=== PATIENT | female | born 1960 | race African-American/Black ===

== ENCOUNTER 2018-03-04 11:25 | Emergency (ER) | payer OTHER ==
--- NOTE | 2018-03-04 12:40 | RAD REPORT ---
EXAM DESCRIPTION: CT - Head Brain Wo Cont - 03/04/2018 12:17 pm CLINICAL HISTORY: Visual disturbance COMPARISON: None. TECHNIQUE: Computed axial tomography of the head was obtained. IV contrast was not requested. All CT scans are performed using dose optimization technique as appropriate and may include automated exposure control or mA/KV adjustment according to patient size. FINDINGS: An intracranial bleed is not seen . The ventricles are normal in caliber. No extra-axial fluid collection is noted. Fluid within the sinuses/ mastoids is not seen. IMPRESSION: No acute intracranial abnormality is seen. If patient's symptoms persist MRI of the bra in would be recommended.
[2018-03-04 13:44] LABS: Absolute Lymphocytes (CBC) 1.9 K/uL (0.7-4.9); Absolute Monocytes 0.4 K/uL (0.1-1.3); Absolute Neutrophil 3.4 K/uL (1.8-8.0); Basophils % 0.7 % (0-1.3); Eosinophils % 2.4 % (0-4.4); Hematocrit 35.8 % (36.0-45.0); Lymphocytes % 32.2 % (15.3-44.8); MCH 27.1 pg (27.0-35.0); MCV 79.8 fL (80-100); MPV 8.8 fL (7.6-11.3); RBC Red Blood Cell Count 4.49 M/uL (3.86-4.86)
[2018-03-04 14:00] LABS: Potassium 3.4 mmol/L (3.5-5.1)
--- NOTE | 2018-03-04 14:39 | RAD REPORT ---
EXAM DESCRIPTION: Rajeevalaina Angio03/04/2018 2:29 pm CLINICAL HISTORY: Double vision COMPARISON: None TECHNIQUE: 50 cc Isovue [address] angiogram neck was performed. Coronal and sagittal reconstruction was done. 3D MIP reconstruction was performed All CT scans are performed using dose optimization technique as appropriate and may include automated exposure control or mA/KV adjustment according to patient size. FINDINGS: The common carotid, internal carotid and external carotid arteries do not demonstrate a si gnificant stenosis. A dissection is not seen. An aneurysm is not noted. The left vertebral artery is dominant. A dissection is not visualized IMPRESSION: Unremarkable CTA neck
--- NOTE | 2018-03-04 14:59 | RAD REPORT ---
EXAM DESCRIPTION: CTHead angio03/04/2018 2:29 pm CLINICAL HISTORY: Blurred vision COMPARISON: None TECHNIQUE: CT angiogram of the head was obtained. 50 cc Isovue 370 was intravenously. Coronal and sa gittal reconstruction was performed. 3D MIP reconstruction was performed All CT scans are performed using dose optimization technique as appropriate and may include automated exposure control or mA/KV adjustment according to patient size. FINDINGS: The basilar, internal carotid, anterior cerebral, middle cerebral and posterior cerebral a rteries are normal caliber. An aneurysm is not seen. origin of the posterior cerebral arteries is present A significant stenosis is not noted. IMPRESSION: Unremarkable CT angiogram head.
--- NOTE | 2018-03-04 15:05 | ER ---
Nurse's Notes [facility] Name: Amber Rodriguez Age: 57 yrs Sex: Female : 1960 Arrival Date: 03/04/2018 Time: 11:31 Bed 20 Private MD: Diagnosis: Diplopia Presentation: 03/04 11:35 Presenting complaint: Patient states: "I am seeing double". Pt reports went to bed last aa5 night at 2000 and woke up today at 0200 with diplopia that comes and goes. Pt also reports nausea today, denies vomiting. Denies pain, dizziness, weakness, paresthesias. 11:35 Transition of care: patient was not received from another setting of care. Onset of aa5 symptoms was March 04, 2018. Risk Assessment: Do you want to hurt yourself or someone else? Patient reports no desire to harm self or others. Initial Sepsis Screen: Does the patient meet any 2 criteria? No. Patient's initial sepsis screen is negative. Does the patient have a suspected source of infection? No. Patient's initial sepsis screen is negative. Care prior to arrival: None. 11:35 Method Of Arrival: Ambulatory aa5 11:35 Acuity: LV 3 aa5 Historical: - Allergies: 11:37 Sulfa (Sulfonamide Antibiotics); aa5 - PMHx: 11:37 Hypertension; Diabetes - IDDM; aa5 - PSHx: 11:37 Hernia repair; aa5 - Immunization history:: Adult Immunizations up to date. - Social history:: Smoking status: Patient/guardian denies using tobacco. - Ebola Screening: : No symptoms or risks identified at this time. Screenin:51 Abuse screen: Denies threats or abuse. Nutritional screening: No deficits noted. aa5 Tuberculosis screening: No symptoms or risk factors identified. Fall Risk None identified. Assessment: 11:40 General: Appears uncomfortable, Behavior is calm, cooperative. Pain: Denies pain. aa5 Neuro: Level of Consciousness is awake, alert, obeys commands, Oriented to person, place, time, situation, Supervisor Smoke Control are equal bilaterally Moves all extremities. Gait is steady, Speech is normal, Facial symmetry appears normal, Pupils are PERRLA, Reports blurred vision diplopia, to both eyes . Denies weakness dizziness, paresthesias numbness headache. Cardiovascular: Heart tones S1 S2 present Rhythm is regular. Respiratory: Airway is patent Respiratory effort is even, unlabored, Respiratory pattern is regular, symmetrical, Breath sounds are clear bilaterally. GI: Abdomen is round non-distended, Bowel sounds present X 4 quads. Abd is soft and non tender X 4 quads. Reports nausea, Patient currently denies vomiting. : No signs and/or symptoms were reported regarding the genitourinary system. EENT: No signs and/or symptoms were reported regarding the EENT system. Derm: Skin is dry, Skin is normal, Skin temperature is warm. Musculoskeletal: Range of motion: intact in all extremities. 12:40 Reassessment: Patient appears in no apparent distress at this time. Patient and/or em family updated on plan of care and expected duration. Pain level reassessed. Patient is alert, oriented x 3, equal unlabored respirations, skin warm/dry/pink. 13:39 Reassessment: Patient appears in no apparent distress at this time. Patient and/or em family updated on plan of care and expected duration. Pain level reassessed. Patient is alert, oriented x 3, equal unlabored respirations, skin warm/dry/pink. symptoms unresolved, daughter at bedside states she has been dealing with left sided neck pain for about 4 months but thought it was due to her sleeping wrong, HANY Marie notified. 14:30 Reassessment: Patient appears in no apparent distress at this time. Patient and/or em family updated on plan of care and expected duration. Pain level reassessed. Patient is alert, oriented x 3, equal unlabored respirations, skin warm/dry/pink. symptoms not resolved, HANY Marie notified. 15:20 Reassessment: Patient appears in no apparent distress at this time. Patient and/or em family updated on plan of care and expected duration. Pain level reassessed. Patient is alert, oriented x 3, equal unlabored respirations, skin warm/dry/pink. c/o nausea and thinks BLG may be dropping, finger stick was 127, HANY Marie at bedside discussing POC. Vital Signs: 11:38 BP 155 / 80; Pulse 75; Resp 16 S; Temp 98.6(O); Pulse Ox 99% on R/A; Weight 87.09 kg aa5 (R); Height 5 ft. 9 in. (175.26 cm) (R); Pain 0/10; 12:40 BP 153 / 85; Pulse 77; Resp 16; Pulse Ox 99% on R/A; Pain 0/10; em 13:41 BP 146 / 82; Pulse 77; Resp 16; Pulse Ox 99% on R/A; Pain 0/10; em 14:34 BP 147 / 69; Pulse 79; Resp 16; Pulse Ox 99% on R/A; Pain 0/10; em 15:20 BP 144 / 75; Pulse 77; Resp 16; Pulse Ox 99% on R/A; Pain 0/10; em 11:38 Body Mass Index 28.35 (87.09 kg, 175.26 cm) aa5 ED Course: 11:31 Patient arrived in ED. mr 11:35 Arm band placed on Patient placed in an exam room, on a stretcher. aa5 11:35 Patient has correct armband on for positive identification. Placed in gown. Bed in low aa5 position. Call light in reach. Side rails up X2. 11:37 Cynthia Hyman FNP-C is PHCP. snw 11:37 Dain Szymanski MD is Attending Physician. snw 11:39 Addison Palomino LVN is Primary Nurse. em 11:48 Triage completed. aa5 11:51 No provider procedures requiring assistance completed. aa5 12:16 CT completed. Patient moved to CT via stretcher. Patient moved back from CT. cw1 12:17 CT Head Brain wo Cont In Process Unspecified. EDMS 13:10 Radiology exam delayed due to lab results not completed at this time. (BUN/Creatinine). cw1 14:26 CT completed. Patient moved to CT via stretcher. Patient moved back from CT. cw1 14:29 CT Neck Angio In Process Unspecified. EDMS 14:30 Head angio In Process Unspecified. EDMS 15:40 IV discontinued, intact, bleeding controlled, No redness/swelling at site. Pressure em dressing applied. Administered Medications: No medications were administered Point of Care Testing: Blood Glucose: 11:59 Blood Glucose: 99 mg/dL; ds4 15:20 Blood Glucose: 127 mg/dL; em Ranges: Outcome: 15:04 Discharge ordered by . snw 15:52 Discharged to home ambulatory, with family. em 15:52 Condition: good 15:52 Discharge instructions given to patient, family, Instructed on discharge instructions, follow up and referral plans. Demonstrated understanding of instructions, follow-up care. 15:55 Patient left the ED. em Signatures: Dispatcher MedHoCynthia Acosta, CALI INTER COM SERVICER-Anna Corral mr Palomino, Addison, GRINDER SET UP OPERATOR INTERNAL GRINDER SET UP OPERATOR INTERNAL em Johanny Castro, AMELIE RN aa5 Jordy, Nathalie cw1 Klever Crane ds4 Corrections: (The following items were deleted from the chart) 15:53 13:39 Reassessment: Patient appears in no apparent distress at this time. Patient em and/or family updated on plan of care and expected duration. Pain level reassessed. Patient is alert, oriented x 3, equal unlabored respirations, skin warm/dry/pink. symptoms unresolved, daughter at bedside states she has been dealing with left sided neck pain for about 4 months but thought it was due to her sleeping wrong, Cynthia, FIRE CONTROL TECHNICIAN B notified em
--- NOTE | 2018-03-04 15:05 | EDPHYS ---
Physician Documentation [facility] Name: Amber Rodriguez Age: 57 yrs Sex: Female : 1960 Arrival Date: 03/04/2018 Time: 11:31 Bed 20 Private MD: ED Physician Dain Szymanski HPI: 03/04 14:54 This 57 yrs old Black Female presents to ER via Ambulatory with complaints of Vision snw Problem. 14:54 Onset: The symptoms/episode began/occurred suddenly. Associated signs and symptoms: The snw patient has no apparent associated signs or symptoms. Modifying factors: The patient symptoms are alleviated by nothing. The patient has not experienced similar symptoms in the past. The patient has been recently seen by a physician: the patient's primary care provider, recently began Vyctoza. Denies headache, vomiting, trauma. Historical: - Allergies: 11:37 Sulfa (Sulfonamide Antibiotics); aa5 - PMHx: 11:37 Hypertension; Diabetes - IDDM; aa5 - PSHx: 11:37 Hernia repair; aa5 - Immunization history:: Adult Immunizations up to date. - Social history:: Smoking status: Patient/guardian denies using tobacco. - Ebola Screening: : No symptoms or risks identified at this time. ROS: 14:52 Constitutional: Negative for fever, chills, and weight loss, ENT: Negative for injury, snw pain, and discharge, Neck: Negative for injury, pain, and swelling, Cardiovascular: Negative for chest pain, palpitations, and edema, Respiratory: Negative for shortness of breath, cough, wheezing, and pleuritic chest pain, Abdomen/GI: Negative for abdominal pain, nausea, vomiting, diarrhea, and constipation, Back: Negative for injury and pain, : Negative for injury, bleeding, discharge, and swelling, MS/Extremity: Negative for injury and deformity, Skin: Negative for injury, rash, and discoloration, Neuro: Negative for headache, weakness, numbness, tingling, and seizure. 14:52 Eyes: Positive for diplopia. Exam: 14:36 Constitutional: This is a well developed, well nourished patient who is awake, alert, snw and in no acute distress. Head/Face: Normocephalic, atraumatic. ENT: Nares patent. No nasal discharge, no septal abnormalities noted. Tympanic membranes are normal and external auditory canals are clear. Oropharynx with no redness, swelling, or masses, exudates, or evidence of obstruction, uvula midline. Mucous membranes moist. Neck: Trachea midline, no thyromegaly or masses palpated, and no cervical lymphadenopathy. Supple, full range of motion without nuchal rigidity, or vertebral point tenderness. No Meningismus. Chest/axilla: Normal chest wall appearance and motion. Nontender with no deformity. No lesions are appreciated. Cardiovascular: Regular rate and rhythm with a normal S1 and S2. No gallops, murmurs, or rubs. Normal PMI, no JVD. No pulse deficits. Respiratory: Lungs have equal breath sounds bilaterally, clear to auscultation and percussion. No rales, rhonchi or wheezes noted. No increased work of breathing, no retractions or nasal flaring. Abdomen/GI: Soft, non-tender, with normal bowel sounds. No distension or tympany. No guarding or rebound. No evidence of tenderness throughout. Back: No spinal tenderness. No costovertebral tenderness. Full range of motion. Skin: Warm, dry with normal turgor. Normal color with no rashes, no lesions, and no evidence of cellulitis. MS/ Extremity: Pulses equal, no cyanosis. Neurovascular intact. Full, normal range of motion. Neuro: Awake and alert, GCS 15, oriented to person, place, time, and situation. Cranial nerves II-XII grossly intact. Motor strength 5/5 in all extremities. Sensory grossly intact. Cerebellar exam normal. Normal gait. Psych: Awake, alert, with orientation to person, place and time. Behavior, mood, and affect are within normal limits. 14:36 Eyes: Periorbital structures: appear normal, Pupils: no acute changes, Extraocular movements: no acute changes, Conjunctiva: normal, Corneas: are normal, Sclera: no appreciated abnormality, Anterior chamber: normal, Visual chavis: double binocular vision in left visual field, not present in monocular vision. Vital Signs: 11:38 BP 155 / 80; Pulse 75; Resp 16 S; Temp 98.6(O); Pulse Ox 99% on R/A; Weight 87.09 kg aa5 (R); Height 5 ft. 9 in. (175.26 cm) (R); Pain 0/10; 12:40 BP 153 / 85; Pulse 77; Resp 16; Pulse Ox 99% on R/A; Pain 0/10; em 13:41 BP 146 / 82; Pulse 77; Resp 16; Pulse Ox 99% on R/A; Pain 0/10; em 14:34 BP 147 / 69; Pulse 79; Resp 16; Pulse Ox 99% on R/A; Pain 0/10; em 15:20 BP 144 / 75; Pulse 77; Resp 16; Pulse Ox 99% on R/A; Pain 0/10; em 11:38 Body Mass Index 28.35 (87.09 kg, 175.26 cm) aa5 MDM: 11:37 Patient medically screened. snw 15:13 Data reviewed: vital signs, nurses notes. Data interpreted: Pulse oximetry: on room air snw is 99 %. Interpretation: normal. Counseling: I had a detailed discussion with the patient and/or guardian regarding: the historical points, exam findings, and any diagnostic results supporting the discharge/admit diagnosis, the presence of at least one elevated blood pressure reading (>120/80) during this emergency department visit, lab results, radiology results, the need for outpatient follow up, for definitive care, a neurologist, to return to the emergency department if symptoms worsen or persist or if there are any questions or concerns that arise at home. Special discussion: I have referred the patient to see his PCP for further evaluation of high blood pressure. Based on the history and exam findings, there is no indication for further emergent testing or inpatient evaluation. I discussed with the patient/guardian the need to see the neurologist for further evaluation of the symptoms. I discussed with the patient/guardian the need to see the opthamologist for further evaluation of the symptoms, I discussed with the patient/guardian the need to see the primary care provider for further evaluation of the symptoms. 03/04 12:59 Order name: CBC with Diff; Complete Time: 13:49 snw 03/04 12:59 Order name: Chem 7; Complete Time: 14:13 snw 03/04 11:47 Order name: CT Head Brain wo Cont; Complete Time: 12:56 snw 03/04 13:06 Order name: TSH; Complete Time: 14:13 snw 03/04 13:42 Order name: CT Neck Angio; Complete Time: 14:43 snw 03/04 11:47 Order name: FSBS; Complete Time: 11:59 snw 03/04 12:59 Order name: SL; Complete Time: 13:39 snw 03/04 13:44 Order name: Head angio; Complete Time: 15:02 EDW[place] Administered Medications: No medications were administered Point of Care Testing: Blood Glucose: 11:59 Blood Glucose: 99 mg/dL; ds4 15:20 Blood Glucose: 127 mg/dL; em Ranges: Critical Glucose Levels:Adult <50 mg/dl or >400 mg/dl <40 mg/dl or >180 mg/dl Disposition: 15:59 Co-signature as Attending Physician, Dain Szymanski MD. Disposition: 03/04/18 15:04 Discharged to Home. Impression: Diplopia. - Condition is Stable. - Discharge Instructions: Diplopia. - Medication Reconciliation Form, Thank You Letter, Antibiotic Education, Prescription Opioid Use form. - Follow up: Private Physician; When: 1 - 2 days; Reason: Recheck today's complaints, Continuance of care, Re-evaluation by your physician. Follow up: Emergency Department; When: As needed; Reason: Worsening of condition. Signatures: Dispatcher [employer] [facility] Cynthia Hyman, SUPERVISOR METAL HANGING-C SUPERVISOR METAL HANGING-Csnw Addison Palomino, DISH UP PERSON DISH UP PERSON Johanny Jaramillo, AMELIE RN aa5 Dain Szymanski MD MD Corrections: (The following items were deleted from the chart) 13:44 13:00 Head Brain W Cont+CT.RAD.BRZ ordered. [facility] EDW[facility] 15:17 15:13 Counseling: I had a detailed discussion with the patient and/or guardian snw regarding: the historical points, exam findings, and any diagnostic results supporting the discharge/admit diagnosis, the presence of at least one elevated blood pressure reading (>120/80) during this emergency department visit, lab results, radiology results, the need for outpatient follow up, for definitive care, a neurologist, to return to the emergency department if symptoms worsen or persist or if there are any questions or concerns that arise at home, critical access hospital 15:17 15:13 Special discussion: I have referred the patient to see his PCP for further snw evaluation of high blood pressure. Based on the history and exam findings, there is no indication for further emergent testing or inpatient evaluation. I discussed with the patient/guardian the need to see the neurologist for further evaluation of the symptoms. I discussed with the patient/guardian the need to see the primary care provider for further evaluation of the symptoms. gus 15:55 15:04 03/04/2018 15:04 Discharged to Home. Impression: Diplopia. Condition is Stable. em Forms are Medication Reconciliation Form, Thank You Letter, Antibiotic Education, Prescription Opioid Use. Follow up: Private Physician; When: 1 - 2 days; Reason: Recheck today's complaints, Continuance of care, Re-evaluation by your physician. Follow up: Emergency Department; When: As needed; Reason: Worsening of condition. gus
== END 2018-03-04 15:55 | disposition home or self-care (01) ==
LOC: ER 11:25
DX: H53.2 Diplopia (principal); Z88.2 Allergy status to sulfonamides; I10 Essential (primary) hypertension; E11.9 Type 2 diabetes mellitus without complications; Z79.4 Long term (current) use of insulin
CPT/HCPCS: 36415; 70450; 70496; 70498; 80048; 82962; 84443; 85025; 99284; Q9967